=== PATIENT | female | born 1960 ===

== ENCOUNTER 2025-06-23 06:00 | Day surgery (SDC) | payer OTHER ==
[2025-06-17 13:31] VITALS: BP 135/80
[~2025-06-23] VITALS: Ht 157.5 cm; Wt 111.6 kg
[~2025-06-23 06:00] MED LIST: CHILDREN'S ASPI81 MG PO; COZAAR100 MG PO; FLONASE SENSIM5.9 ML; PROAIR RESPICL90 MCG; SIMVASTATIN5 MG; SINGULAIR10 MG PO; TRELEGY ELLIPT1 EAC1 IH; XYZAL
[2025-06-23] MEDS ORDERED: BUPIVACAINE HCL/MPF 0.5% 30ML VIAL ONE (06:36)
[2025-06-23] MEDS ORDERED: LIDOCAINE HCL 1% 20 ML VIAL IJ ONE (06:36)
[2025-06-23] MEDS ORDERED: CEFAZOLIN SODIUM 1,000 MG VIAL ONE (06:51)
[2025-06-23] MEDS ORDERED: LIDOCAINE HCL 1%/EPINEPHRINE 20ML VIAL IJ ONE (07:00)
[2025-06-23] MEDS ORDERED: POVIDONE-IODINE 118 ML BOTT TOP ONE (07:11)
[2025-06-23] MEDS ORDERED: SODIUM BICARBONATE 1 MEQ/ML DISP.SYRIN 50ML IV ONE (07:15)
[2025-06-23] MEDS ORDERED: MORPHINE SULFATE 2 MG/ML CARTRIDGE IV ONE (08:20)
== END 2025-06-23 10:25 | disposition home or self-care (01) ==
LOC: CIR.AMB 06:00
PROVIDERS: ATTEND Surgery Surgery of the Hand
DX: M71.341 Other bursal cyst, right hand (principal); M67.843 Other specified disorders of tendon, right hand; D21.11 Benign neoplasm of connective and other soft tissue of right upper limb, including shoulder